=== PATIENT | female | born 1995 | race African-American/Black ===

== ENCOUNTER 2021-06-28 17:52 | Emergency (ER) | payer OTHER, SELFPAY ==
--- NOTE | ~2021-06-28 | XR_ITS ---
XR chest 1V portable DATE: 06/28/2021 21:05 INDICATION: Shortness of breath with exertion, chest congestion TECHNIQUE: Portable upright AP chest on 06/28/2021 at 2100 hours COMPARISON: None FINDINGS: Minimal infiltrate or atelectasis is suggested in the lateral right mid to upper lung. The lungs otherwise appear clear. No pleural effusion or pulmonary vascular congestion or pneumothorax. Normal heart size. No hilar or mediastinal enlargement. Included skeletal structures are unremarkable . IMPRESSION: Subtle minimal infiltrate or atelectasis is suggested in the mid to upper lateral right l [place] field. Focal pneumonia is not excluded. Reviewed, dictated and finalized at location A. POLISHER IMPRESSION: Subtle minimal infiltrate or atelectasis is suggested in the mid to upper lateral right lung field. Focal pneumonia is not excluded.
[2021-06-28 17:58] VITALS: BP 143/73; PULSE 78; TEMP 36.6; O2SAT 100
[2021-06-28 20:00] VITALS: BP 128/85; PULSE 74; RESP 18; O2SAT 100
[2021-06-28 20:03] VITALS: O2SAT 100
--- NOTE | 2021-06-28 20:06 | ECG_ITS ---
Measurements Intervals [place] Rate: 74 P: 1 IN: 146 QRS: 51 QRSD: 84 T: 40 QT: 380 QTc: 422 Interpretive Statements SINUS RHYTHM BASELINE ARTIFACT- I, II, AVR NORMAL ECG Electronically Signed On 06-29-2021 7:33:09 PARTS ADVISOR by Romeo Trammell D.O.
--- NOTE | 2021-06-28 20:12 | ED.GENADULT ---
HPI - General Adult General Chief complaint: Shortness of Breath/Dyspnea Stated complaint: Shortness of Breath Time Seen by Provider: 06/28/21 19:57 History of Present Illness HPI narrative: 26-year-old female presented [facility] for evaluation of 2 weeks of intermittent exertional shortness of breath. Patient did not get a flu vaccine. Patient did get a Covid vaccine. Patient states her last 2 weeks she has had increasing exertional shortness of breath which she notices when she is at work primarily when wearing a facemask. Patient states she does still have some symptoms when she is not wearing her facemask. Patient denies any prior history of PE or DVT. Patient is not on any hormone therapy or control. Review of Systems Review of Systems: CONSTITUTIONAL: Denies fever, chills, or sweats. EYES: Denies visual changes, redness, or discharge. ENT: Denies rhinorrhea, congestion, sore throat, or otalgia. CARDIOVASCULAR: Denies chest pain, palpitations, or edema. RESPIRATORY: Does report exertional shortness of breath GASTROINTESTINAL: Denies abdominal pain, nausea, vomiting, or diarrhea. GENITOURINARY: Denies dysuria or hematuria. SKIN: Denies rash or itching. MUSCULOSKELETAL: Denies back pain, joint pain, or myalgia. NEUROLOGIC: Denies headache, numbness, or weakness. PSYCHIATRIC: Denies anxiety or depression. Exam Narrative: APPEARANCE: Well appearing, no pain in distress, well-nourished. Head normocephalic atraumatic. EYES: PERRLA/EOMI, conjunctivae very clear. NECK: Supple. No adenopathy, no masses. RESPIRATORY: Airway patent, respirations nonlabored. Clear to auscultation bilaterally, no rales, rhonchi, wheezing. CARDIOVASCULAR: Regular rate and rhythm without murmurs rubs or gallops. ABDOMINAL: Soft, nontender, nondistended MUSCULOSKELETAl: Moves all extremities. Strength/ROM intact, No edema, No calf tenderness. NEURO: Alert. Cranial nerves II through XII intact. Good gait. Good coordination SKIN: Warm, dry. Normal Color PSYCHIATRIC: Normal affect/mood Course Course Emergency Course: Patient was updated on the plan to obtain labs and imaging. Patient was treated with antibiotics for the suspected pneumonia. Patient was updated on the plan for treatment. All questions and concerns were addressed. Patient was well-appearing at time of discharge for the emergency room. Vital Signs Vital signs: Vital Signs Temperature 98 F 06/28/21 17:58 Pulse Rate 78 06/28/21 17:58 Blood Pressure 143/73 H 06/28/21 17:58 Pulse Oximetry 100 06/28/21 17:58 Temperature 98 F 06/28/21 17:58 Pulse Rate 81 06/28/21 21:46 Respiratory Rate 18 06/28/21 21:46 Blood Pressure 129/81 06/28/21 21:46 Pulse Oximetry 100 06/28/21 21:46 Medical Decision Making MDM Narrative Medical decision making narrative: Influenza was negative. Covid is pending. D-dimer was not elevated. X-ray did show a suspected right upper lobe pneumonia. Patient was treated with antibiotics in the emergency department. Vital Signs Vital Signs: Vital Signs Temperature 98 F 06/28/21 17:58 Pulse Rate 78 06/28/21 17:58 Blood Pressure 143/73 H 06/28/21 17:58 Pulse Oximetry 100 06/28/21 17:58 Temperature 98 F 06/28/21 17:58 Pulse Rate 81 06/28/21 21:46 Respiratory Rate 18 06/28/21 21:46 Blood Pressure 129/81 06/28/21 21:46 Pulse Oximetry 100 06/28/21 21:46 Lab Data Lab results reviewed: Yes I reviewed the patient's lab results. Result diagrams: 06/28/21 20:23 06/28/21 20:23 Labs: Lab Results 06/28/21 06/28/21 06/28/21 Range/Units 20:23 20:23 20:23 WBC 7.0 (4.5-10.0) K/mm3 RBC 4.29 (4.2-5.4) M/mm3 Hgb 11.8 L (12.0-15.0) g/dL Hct 36.2 L (37.0-47.0) % MCV 84.4 (80-100) fl MCH 27.5 (26-34) pg MCHC 32.6 (32-36) g/dl RDW 12.6 (11.5-14.5) % Plt Count 232 (150-375) k/mm3 MPV 10.2 (7.4-10.4) fl Immature Gran % (Auto)
[2021-06-28 20:31] LABS: Basophils Absolute Auto 0.1 K/mm3 (0.0-0.1); Basophils Percent Auto 0.7 % (0.2-1.2); Eosinophils Absolute Auto 0.1 K/mm3 (0-0.3); Eosinophils Percent Auto 1.1 % (0-4.4); Hematocrit 36.2 % (37.0-47.0); Hemoglobin 11.8 g/dL (12.0-15.0); Immature Granulocyte Absolute 0.02 K/mm3 (0.00-0.031); Immature Granulocyte Percent A 0.3 % (0-0.5); Lymphocytes Absolute Auto 2.42 K/mm3 (0.9-3.2); Lymphocytes Percent Auto 34.7 % (18.3-44.2); Mean Corpuscular HGB Conc 32.6 g/dl (32-36); Mean Corpuscular Hemoglobin 27.5 pg (26-34); Mean Corpuscular Volume 84.4 fl (80-100); Mean Platelet Volume 10.2 fl (7.4-10.4); Monocytes Absolute Auto 0.6 K/mm3 (0.1-0.6); Neutrophils Absolute Auto 3.8 K/mm3 (1.3-6.7); Neutrophils Percent Auto 54.2 % (45.5-73.1); Platelet Count Result 232 k/mm3 (150-375); Red Blood Count 4.29 M/mm3 (4.2-5.4); Red Cell Distribution Width 12.6 % (11.5-14.5)
[2021-06-28 20:43] LABS: D Dimer 0.27 ug/mL (<0.48)
[2021-06-28 20:56] LABS: Alanine Aminotransferase 24 U/L (4-35); Albumin Level 4.6 g/dL (3.5-5.1); Alkaline Phosphatase 50 U/L (38-126); Anion Gap 7 mmol/L (8-16); Aspartate Amino Transferase 32 U/L (14-36); Bilirubin,Total 0.3 mg/dL (0.2-1.3); Blood Urea Nitrogen 17 mg/dL (7-17); Calcium 9.5 mg/dL (8.4-10.2); Carbon Dioxide 27 mmol/L (22-30); Chloride 100 mmol/L (98-107); Estimated CRCL calculation 63 ml/min; Estimated Glomerular Filt Rate > 60; Glucose 101 mg/dL (65-110); Potassium 4.3 mmol/L (3.4-5.0); Sodium 134 mmol/L (137-145)
[2021-06-28] MEDS: AZITHROMYCIN 250 MG TABLET 500 MG PO (21:41)
[2021-06-28 21:46] VITALS: BP 129/81; PULSE 81; RESP 18; O2SAT 100
[2021-06-30 03:58] LABS: SARS-CoV-2 RNA PCR Negative
== END 2021-06-28 21:47 | disposition home or self-care (01) ==
PROVIDERS: Emergency Provider Emergency Medicine
DX: J18.9 Pneumonia, unspecified organism (principal); Z20.822 Contact with and (suspected) exposure to COVID-19
CPT/HCPCS: 36415; 71045; 80053; 85025; 85380; 87804; 93005; 99283; A9270; C9803; U0003; U0005

== ENCOUNTER 2025-01-14 09:56 | Emergency (ER) | payer BC, SELFPAY ==
[2025-01-14] VITALS (13 sets, daily range): BP systolic 105–127; BP diastolic 74–86; PULSE 89–107; RESP 15–23; TEMP 36.6; O2SAT 97–100
--- NOTE | 2025-01-14 10:05 | ED.DIZZY ---
HPI - Dizziness General Chief Complaint: Dizziness Stated Complaint: Dizziness Time Seen by Provider: 01/14/25 09:58 Source: patient Mode of arrival: ambulatory Limitations: no limitations History of Present Illness HPI Narrative: Patient is a 29 y/o female who presents to the ED with c/o dizziness. Patient is currently 34 weeks gestation. She follows with [facility]. Reports over the past 1 hour, she has been feeling dizzy and short of breath. Describes dizziness as feeling lightheaded and as though she is about to pass out. Reports intermittent SOB, worse with exertion. Denies CP, recent cough or cold sx's, fevers, abdominal pain, vaginal bleeding, pain or swelling in her lower extremities. She is feeling baby move. Otherwise denies any problems with her thus far. Related Data Allergies Allergy/AdvReac Type Severity Reaction Status Date / Time amoxicillin Allergy Mild Hives Verified 11/08/22 10:14 Penicillins Allergy Mild Hives Verified 11/08/22 10:14 Review of Systems Review of Systems: All systems reviewed & are unremarkable except as noted in HPI. All systems reviewed & are unremarkable except as noted in HPI and below PMFSH Past Medical History Medical History Suppression of menses Family History Family History Grandparent Diabetes mellitus Social History Social History Smoking status: Never smoker Alcohol intake: former Substance use: former Substance use type: marijuana Living arrangements: with family Occupation/Education: occupation Gender identity (if verbalized by the patient): Female Sexual Orientation (if Verbalized by the Patient): Straight or Heterosexual Exam Narrative: GENERAL: Anxious/tearful appearing, well-nourished, non-toxic, in no acute distress. HEAD: Normocephalic, atraumatic. RESPIRATORY: Airway patent, respirations nonlabored. Clear to auscultation bilaterally, no rales, rhonchi, wheezing. No focal lung sounds. CARDIOVASCULAR: Borderline tachycardic with regular rhythm without murmurs, rubs, or gallops. ABDOMINAL: Uterus gravid, nontender, normoactive BS. MUSCULOSKELETAL: Moves all extremities. No gross deformities. No peripheral edema. No calf tenderness. SKIN: Warm, dry, normal color. NEURO: A&O X3. Speech clear. Cranial nerves II-XII grossly intact. Steady gait. No ataxic movements. PSYCHIATRIC: Tearful. Normal interaction. Course Vital Signs Vital signs: Vital Signs Temperature 97.8 F 01/14/25 10:04 Pulse Rate 96 01/14/25 10:04 Respiratory Rate 16 01/14/25 10:04 Blood Pressure 126/77 01/14/25 10:04 Pulse Oximetry 99 01/14/25 10:04 Temperature 97.8 F 01/14/25 10:04 Pulse Rate 97 01/14/25 11:00 Respiratory Rate 20 01/14/25 11:00 Blood Pressure 127/86 01/14/25 11:00 Pulse Oximetry 100 01/14/25 11:00 MDM - Dizziness MDM Narrative Medical decision making narrative: Patient presented to concern for dizziness/lightheadedness, shortness of breath. Ongoing over the past 1 hour. Currently 34 weeks gestation. Vital signs are stable upon arrival. Patient mildly tachycardic. Blood pressure stable. Oxygen stable on room air. Orthostatic vital signs were evaluated, w/o significant change in heart rate or blood pressure. Patient will be given fluids. EKG with some nonspecific ST changes, no concerning elevation or depression. Basic laboratory studies with mild anemia at 8.9. No recent records to compare to. Patient denies any recent bleeding. Likely related to . No leukocytosis. CMP with evidence of mild dehydration, sodium 132, bicarb slightly low at 20. No anion gap. Kidney function is stable. Stable electrolytes. UA does show 3+ proteinuria, trace leuk esterase, 6-10 WBC, 4+ urine bacteria. Likely contaminated catch, but will cover with antibiotics given status. Blood pressure has been stable here. No other features of preeclampsia. No red flag symptoms. Viral swabs are negative. Troponin undetectable. D-dimer is slightly elevated to 0.91, however PE can be excluded by YEARS Criteria. No evidence of DVT on exam. No persistent tachycardia, no hypoxia. Heart rate has responded to fluids and come down into the 80s consistently. Discussed this with patient. Utilized shared decision-making. She reports she is not concerned for blood clot in her lungs and does not wish to proceed with CTA imaging. She is feeling better after fluids and meclizine. Patient has appointment with OBGYN next . Discussed case with nursing staff at [facility] and advised will contact patient to see if she needs sooner follow-up appointment. OB performed NST in the ED and this was reassuring. No concerning findings. This was reviewed by ARGENIS Saenz on-call, again no concerning findings. Discussed overall reassuring workup with patient. She is feeling better with supportive therapy. Feels comfortable going home at this time. Recommended close follow-up with OBGYN. Given strict return precautions. Advised to stay well hydrated. Will prescribe meclizine for home p.r.n.. Patient in agreement with plan. Discharged in stable condition. Medical Records Attestation: I reviewed the patient's medical records. Lab Data Attestation: I reviewed the patient's lab results. 01/14/25 10:21 01/14/25 10:21 Labs: Lab Results 01/14/25 01/14/25 Range/Units 10:21 10:47 WBC 8.3 (4.5-10.0) K/mm3 RBC 3.34 L (4.2-5.4) M/mm3 Hgb 8.9 L (12.0-15.0) g/dL Hct 28.1 L (37.0-47.0) % MCV 84.1 (80-100) fl MCH 26.6 (26-34) pg MCHC 31.7 L (32-36) g/dl RDW 13.6 (11.5-14.5) % Plt Count 172 (150-375) k/mm3 MPV 10.3 (7.4-10.4) fl Immature Gran % (Auto) 1.3 H (0-0.5) % Neut % (Auto) 75.5 H (45.5-73.1) % Lymph % (Auto) 16.9 L (18.3-44.2) % [place] % (Auto) 5.3 (2.6-8.5) % Eos % (Auto) 0.5 (0-4.4) % Baso % (Auto) 0.5 (0.2-1.2) % Lymph # (Auto) 1.40 (0.9-3.2) K/mm3 [place] # (Auto) 0.4 (0.1-0.6) K/mm3 Eos # (Auto) 0.0 (0-0.3) K/mm3 Baso # (Auto) 0.0 (0.0-0.1) K/mm3 Abs Immat Gran (auto) 0.11 H (0.00-0.031) K/mm3 Absolute Neuts (auto) 6.2 (1.3-6.7) K/mm3 Absolute Nucleated RBC 0.000 (0.0-0.012) K/mm3 Nucleated RBC % 0.0 (0.0-0.2) % PT 13.5 (11.1-14.7) Seconds INR 1.0 APTT 24.9 (22.3-36.8) Seconds D-Dimer 0.91 H (<0.48) ug/mL Sodium 132 L (137-145) mmol/L Potassium 3.9 (3.4-5.0) mmol/L Chloride 106 (98-107) mmol/L Carbon Dioxide 20 L (22-30) mmol/L Anion Gap 6 (4-12) mmol/L BUN 9 D (7-17) mg/dL Creatinine 0.96 (0.7-1.0) mg/dL Estim Creat Clear Calc Not Reportable Estimated GFR > 60 (59 - ) Glucose 155 H (65-110) mg/dL Calcium 8.7 (8.4-10.2) mg/dL Magnesium 1.7 (1.6-2.3) mg/dL Total Bilirubin 0.4 (0.2-1.3) mg/dL AST 39 H (14-36) U/L ALT 29 (6-35) U/L Alkaline Phosphatase 108 (38-126) U/L Troponin I < 0.012 (0.000-0.034) ng/mL Total Protein 6.3 (6.3-8.2) g/dL Albumin 3.2 L (3.5-5.1) g/dL Urine Color Dark yellow (Yellow) Urine Appearance Cloudy H (Clear) Urine pH 6.5 (5.0-9.0) Ur Specific [place] 1.030 (1.001-1.035) Urine Protein 3+ H (Negative) mg/dL Urine Glucose (UA) Negative (Negative) mg/dL Urine Ketones 1+ H (Negative) mg/dL Ur Blood (Man) Negative (Negative) Urine Nitrate Negative (Negative) Urine Bilirubin 1+ H (Negative) Urine Urobilinogen 1.0 (<2.0) mg/dL Add Ur Microanalysis Reviewed Leukocyte Esterase Rfl Trace H (Negative) AISHA/UL Urine RBC 0-2 (0-2) /hpf Urine WBC 6-10 H (0-3) /hpf Ur Squamous Epith Cells Many H (Few) /hpf Urine Bacteria 4+ H /hpf Urine Casts >20 Hyaline Casts 3-4 H (None) /lpf Urine Mucus Present /lpf Influenza A (RT-PCR) Negative (Negative) Influenza B (RT-PCR) Negative (Negative) RSV (RT-PCR) Negative (Negative) SARS-CoV-2 RNA (RT-PCR) Negative (Negative) ECG Data EKG #1: Attestation: I personally reviewed and interpreted this ECG as follows: ECG completion date: 01/14/25 ECG completion time: 10:11 EKG Interpretation: normal rate (96), sinus rhythm and non-specific ST changes Discharge Plan Discharge Clinical Impression: Lightheadedness, 34 weeks gestation of , Asymptomatic bacteriuria during in third trimester Proteinuria Qualifiers: Proteinuria type: unspecified Qualified Code(s): R80.9 - Proteinuria, unspecified Patient Disposition: Home Condition: Stable Instructions: Antibiotic Form, Lightheadedness (ED), Dizziness (ED), at 35 to 38 Weeks (ED) Additional Instructions: Stay well hydrated at home. You may utilize meclizine as needed for further dizziness. Your urine showed signs of possible infection. Take antibiotics as prescribed. Follow-up closely with your OBGYN for further evaluation. They were made aware of your ED visit. They may want to see you sooner than your appointment next . Return to an ED if you experience worsening or severe symptoms, passing out, significant difficulty breathing, severe chest pain, unable to keep down food or drink, severe abdominal pain, vaginal bleeding, pain or swelling in your legs, or any other symptoms of concern. Patient Language: [place] Prescriptions: New nitrofurantoin monohyd/m-cryst 100 mg capsule 100 mg PO Q12H 5 Days Qty: 10 0RF Rx Instructions: must administer with a meal/food meclizine 25 mg tablet 25 mg PO TID PRN (Reason: dizziness) Qty: 15 0RF Follow-up/Referrals: PHYSICIAN,SURFACE LAY OUT TECHNICIAN [Primary Care Provider] - Time of Disposition: 12:21
--- NOTE | 2025-01-14 10:07 | ECG_ITS ---
Test Date: 2025-01-14 10:11:07 Measurements Intervals [place] Rate: 96 P: 62 WY: 138 QRS: 43 QRSD: 75 T: 25 QT: 329 QTc: 417 Interpretive Statements SINUS RHYTHM WITHIN NORMAL LIMITS HIS No previous ECG available for comparison Electronically Signed On 01-14-2025 10:20:06 CDT by Rene Lema M.D.
--- OUTSIDE RECORDS SUMMARY | 2025-01-14 10:07 | XMS_ITS | Data Portability ---
Author Organization [facility] Address [address] [place] [address] Assessment No assessment recorded. Plan of Treatment Reminders Order Date Submit Date Provider Last Modified By Organization Details Last Modified Time Details Appointments None recorded. Lab bacterial vaginosis + vaginitis panel, vaginal 2015 016 MELISSA [facility], [address], [address], [place], [address], 6 06:05:25 HSV (1+2) DNA, qual, PCR, unspecifie d specimen 2015 016 [facility], [address], [address], [place], [address], 6 06:05:26 test, urine 2015 016 [email or web address] In-Office Order, Internal Use Only DO Not Attach Compendium DO Not Attach Compendium, Do Not Delete/merge, [id number] 6 10:41:56 urinalysis , dipstick 2015 016 [email or web address] In-Office Order, Internal Use Only DO Not Attach Compendium DO Not Attach Compendium, Do Not Delete/merge, [id number] 6 10:41:56 bacterial vaginosis + vaginitis panel, vaginal 2014 015 MELISSA [facility], [address], [address], [place], [address], 5 14:23:45 HSV (1+2) DNA, qual, PCR, unspecifie d specimen 2014 015 [facility], [address], [address], [place], [address], 5 14:23:45 test, urine 2014 015 [email or web address] In-Office Order, Internal Use Only DO Not Attach Compendium DO Not Attach Compendium, Do Not Delete/merge, [id number] 5 13:01:20 Referral None recorded. Procedures None recorded. Surgeries None recorded. Imaging None recorded. Medication Orders Tubersol 5 tub. unit/0.1 mL intraderma l injection solution 2023 024 [facility] #[id number], [address] [place], [place], [id number], 4 19:07:43 Sprintec (28) 0.25 mg-0.035 mg tablet 2015 016 [facility] #[id number], [address], [place], [id number], 6 18:03:37 Terazol 3 0.8 % vaginal cream 2015 016 [facility] #[id number], [address] [place], [place], [id number], 6 18:03:37 Diflucan 150 mg tablet 2014 015 [place] [address] [facility] #[id number], [address] [place], [place], [id number], 5 17:28:43 Sprintec (28) 0.25 mg-0.035 mg tablet 2014 015 [place] [address] [facility] #[id number], [address], [place], [id number], 17:28:43 Patient TargetsNo targets recorded. Patient Instructions Encounter Date Encounter Id Patient Instructions Last Modified By Organization Details Last Modified Time 02/10/2015 [id number] visual acuity* [email or web address] Not availab le 02/10/2015 13:03:08 02/16/2015 [id number] learning about control: combination pills Not available 02/16/2015 17:28:43 12/24/2015 [id number] learning about control: combination pills [email or web address] Not available 12/25/2015 09:27:57 Reason for Referral None Reported. Results Created Date Observation Date Name Description Value Unit Range Abnormal Flag Note LastModifiedBy Organization Detail LastModifiedTime 12/24/19 16 12/24/2015 urina lysis , dipst ick Leukocytes Negati ve Not Available In-Office Order Internal Use Only DO Not Attach Compendium DO Not Attach Compendium, Do Not Delete/merge, [id number] 12/24/2015 17:08:37 12/24/1912/24/2015 urina lysis , dipst ick Nitrite negati ve Not Available In-Office Order Internal Use Only DO Not Attach Compendium DO Not Attach Compendium, Do Not Delete/merge, 12/24/2015 17:08:37 12/24/19 16 12/24/2015 urina lysis , dipst ick Urobilinogen .2 Not Available In-Of fice Order Internal Use Only DO Not Attach Compendium DO Not Attach Compendium, Do Not Delete/merge, 12/24/2015 17:08:37 12/24/19 16 12/24/2015 urina lysis , dipst ick Protein Negati ve Not Available In-Office Order Internal Use Only DO Not Attach Compendium DO Not Attach Compendium, Do Not Delete/merge, 12/24/2015 17:08:37 12/24/19 16 12/24/2015 urina lysis , dipst ick pH 6.5 Not Available In-Office Order Internal Use Only DO Not Attach Compendium DO Not Attach Compendium, Do Not Delete/merge, [facility] 12/24/2015 17:08:37 12/24/19 16 12/24/2015 urina lysis , dipst ick Blood Hemoly zed: Trace Not Available In-Office Order Internal Use Only DO Not Attach Compendium DO Not Attach Compendium, Do Not Delete/merge, [facility] 12/24/2015 17:08:37 12/24/19 16 12/24/2015 urina lysis , dipst ick Specific [place] 1.025 Not Available In-Off ice Order Internal Use Only DO Not Attach Compendium DO Not Attach Compendium, Do Not Delete/merge, [facility] 12/24/2015 17:08:37 12/24/19 16 12/24/2015 urina lysis , dipst ick Ketone Negati ve Not Available In-Office Order Internal Use Only DO Not Attach Compendium DO Not Attach Compendium, Do Not Delete/merge, [facility] 12/24/2015 17:08:37 12/24/19 16 12/24/2015 urina lysis , dipst ick Bilirubin Negati ve Not Available In-Office Order Internal Use Only DO Not Attach Compendium DO Not Attach Compendium, Do Not Delete/merge, [facility] 12/24/2015 17:08:37 12/24/19 16 12/24/2015 urina lysis , dipst ick Glucose Negati ve Not Available In-Office Order Internal Use Only DO Not Attach Compendium DO Not Attach Compendium, Do Not Delete/merge, [facility] 12/24/2015 17:08:37 12/24/19 16 12/24/2015 urina lysis , dipst ick Appearance Clear Not Available In-Offi ce Order Internal Use Only DO Not Attach Compendium DO Not Attach Compendium, Do Not Delete/merge, [facility] 12/24/2015 17:08:37 12/24/19 16 12/24/2015 urina lysis , dipst ick Color Yellow Not Available In-Office Order Internal Use Only DO Not Attach Compendium DO Not Attach Compendium, Do Not Delete/merge, [facility] 12/24/2015 17:08:37 12/24/19 16 12/24/2015 pregn brenton test, urine HCG negati ve Not Available In-Office Order Internal Use Only DO Not Attach Compendium DO Not Attach Compendium, Do Not Delete/merge, [id number] 12/24/2015 17:08:37 02/17/20 15 02/16/2015 pregn brenton test, urine HCG negati ve Not Available In-Office Order Internal Use Only DO Not Attach Compendium DO Not Attach Compendium, Do Not Delete/merge, [id number] 02/16/2015 17:28:22 02/11/20 15 02/10/2015 visua l acuit y* R Eye Uncorrected 20/ Not Available In-O ffice Order Internal Use Only DO Not Attach Compendium DO Not Attach Compendium, Do Not Delete/merge, [id number] 02/10/2015 11:31:46 02/11/20 15 02/10/2015 visua l acuit y* L Eye Uncorrected 20/30 Not Available In-O ffice Order Internal Use Only DO Not Attach Compendium DO Not Attach Compendium, Do Not Delete/merge, [id number] 02/10/2015 11:31:46 02/18/20 15 02/21/2015 bacte rial vagin osis + vagin itis panel , vagin al chlamydia trachomatis, KIANA NEGATI VE negati ve Not Available [facility] ([facility]) [address] [place], [address], 02/23/2015 14:23:45 02/18/20 15 02/21/2015 bacte rial vagin osis + vagin itis panel , vagin al neisseria gonorrhoeae, KIANA NEGATI VE negati ve Not Available [facility] ([facility]) [address] [place], [address], 02/23/2015 14:23:45 02/18/20 15 02/23/2015 bacte rial vagin osis + vagin itis panel , vagin al atopobium vaginae LOW - 0 score Not Available [facility] ([facility]) [address] [place], [address], 02/23/2015 14:23:45 02/18/20 15 02/23/2015 bacte rial vagin osis + vagin itis panel , vagin al bvab 2 LOW - 0 score Not Available [facility] ([facility]) [address] [place], [address], 02/23/2015 14:23:45 02/18/20 15 02/23/2015 bacte rial vagin osis + vagin itis panel , vagin al megasphaera 1 LOW - 0 score CALCU LATE TOTAL SCORE BY MICHELLE Rojas THE 3 INDIV IDUAL BACTE RIAL VAGIN OSIS (BV) MARKE R SCORE S TOGET HER. TOTAL SCORE IS INTER PRETE D FOLLO WS: TOTAL SCORE 0-1: INDIC ATES THE ABSEN CE OF BV. TOTAL SCORE 2: INDET ERMIN ATE FOR BV. ADDIT IONAL CLINI MADELIN DATA SHOUL D BE EVALU ATED TO ESTAB PURVI A DIAGN OSIS. TOTAL SCORE 3-6: INDIC ATES THE PRESE NCE OF BV. THIS TEST WAS DEVEL OPED AND ITS PERFO RMANC E LEWIS CTERI STICS DETER MINED BY [employer] [facility]. IT HAS NOT BEEN CLEAR ED OR APPRO NITO BY THE FOOD AND DRUG ADMIN ISTRA TION. THE FDA HAS DETER MINED THAT SUCH CLEAR ANCE OR APPRO SASHA IS NOT NECES DAVID. Not Available [facility] ([facility]) [address] [facility], [place], [address], 02/23/2015 14:23:45 02/18/20 15 02/23/2015 bacte rial vagin osis + vagin itis panel , vagin al daphney albicans, KIANA POSITI VE negati ve abnormal Not Available [facility] ([facility]) [address] [place], [address], 02/23/2015 14:23:45 02/18/20 15 02/23/2015 bacte rial vagin osis + vagin itis panel , vagin al daphney glabrata, KIANA NEGATI VE negati ve THIS TEST WAS DEVEL OPED AND ITS PERFO RMANC E LEWIS CTERI STICS DETER MINED BY [employer] [facility]. IT HAS NOT BEEN CLEAR ED OR APPRO NITO BY THE FOOD AND DRUG ADMIN ISTRA TION. THE FDA HAS DETER MINED THAT SUCH CLEAR ANCE OR APPRO SASHA IS NOT NECES DAVID. Not Available [facility] ([facility]) [address] [place], [address], 02/23/2015 14:23:45 02/18/20 15 02/23/2015 bacte rial vagin osis + vagin itis panel , vagin al trich vag by KIANA NEGATI VE negati ve Not Available [facility] ([facility]) [address] [place], [address], 02/23/2015 14:23:45 02/18/20 15 02/19/2015 HSV (1+2) DNA, qual, PCR, unspe cifie d speci men hsv 1 KIANA NEGATI VE negati ve Not Available [facility] ([facility]) [address] [place], [address], 02/23/2015 14:23:45 02/18/20 15 02/19/2015 HSV (1+2) DNA, qual, PCR, unspe cifie d speci men hsv 2 KIANA NEGATI VE negati ve Not Available [facility] ([facility]) [address] [place], [address], 02/23/2015 14:23:45 12/25/19 16 12/27/2015 bacte rial vagin osis + vagin itis panel , vagin al chlamydia trachomatis, KIANA NEGATI VE negati ve Not Available [facility] ([facility]) [address] [place], [address], 12/30/2015 06:05:25 12/25/19 16 12/27/2015 bacte rial vagin osis + vagin itis panel , vagin al neisseria gonorrhoeae, KIANA NEGATI VE negati ve Not Available [facility] ([facility]) [address] [place], [address], 12/30/2015 06:05:25 12/25/19 16 12/28/2015 bacte rial vagin osis + vagin itis panel , vagin al daphney albicans, KIANA NEGATI VE negati ve Not Available [facility] ([facility]) [address] [place], [address], 12/30/2015 06:05:25 12/25/19 16 12/28/2015 bacte rial vagin osis + vagin itis panel , vagin al daphney glabrata, KIANA NEGATI VE negati ve THIS TEST WAS DEVEL OPED AND ITS PERFO RMANC E LEWIS CTERI STICS DETER MINED BY [facility]. IT HAS NOT BEEN CLEAR ED OR APPRO NITO BY THE FOOD AND DRUG ADMIN ISTRA TION. THE FDA HAS DETER MINED THAT SUCH CLEAR ANCE OR APPRO SASHA IS NOT NECES DAVID. Not Available [facility] ([facility]) [address] [place], [address], 12/30/2015 06:05:25 12/25/19 16 12/28/2015 bacte rial vagin osis + vagin itis panel , vagin al trich vag by KIANA NEGATI VE negati ve Not Available [facility] ([facility]) [address] [place], [address], 12/30/2015 06:05:25 12/25/19 16 12/30/2015 bacte rial vagin osis + vagin itis panel , vagin al atopobium vaginae HIGH - 2 score abnormal Not Available [facility] ([facility]) [address] [place], [address], 12/30/2015 06:05:25 12/25/19 16 12/30/2015 bacte rial vagin osis + vagin itis panel , vagin al bvab 2 HIGH - 2 score abnormal Not Available [facility] ([facility]) [address] [place], [address], 12/30/2015 06:05:25 12/25/19 16 12/30/2015 bacte rial vagin osis + vagin itis panel , vagin al megasphaera 1 HIGH - 2 score abnormal CALCU LATE TOTAL SCORE BY MICHELLE Rojas THE 3 INDIV IDUAL BACTE RIAL VAGIN OSIS (BV) MARKE R SCORE S TOGET HER. TOTAL SCORE IS INTER PRETE D FOLLO WS: TOTAL SCORE 0-1: INDIC ATES THE ABSEN CE OF BV. TOTAL SCORE 2: INDET ERMIN ATE FOR BV. ADDIT IONAL CLINI MADELIN DATA SHOUL D BE EVALU ATED TO ESTAB PURVI A DIAGN OSIS. TOTAL SCORE 3-6: INDIC ATES THE PRESE NCE OF BV. THIS TEST WAS DEVEL OPED AND ITS PERFO RMANC E LEWIS CTERI STICS DETER MINED BY [facility]. IT HAS NOT BEEN CLEAR ED OR APPRO NITO BY THE FOOD AND DRUG ADMIN ISTRA TION. THE FDA HAS DETER MINED THAT SUCH CLEAR ANCE OR APPRO SASHA IS NOT NECES DAVID. Not Available [facility] ([facility]) [address] [place], [address], 12/30/2015 06:05:25 12/25/19 16 12/28/2015 HSV (1+2) DNA, qual, PCR, unspe cifie d speci men hsv 1 KIANA NEGATI VE negati ve Not Available [facility] ([facility]) [address] [place], [address], 12/30/2015 06:05:26 12/25/19 16 12/28/2015 HSV (1+2) DNA, qual, PCR, unspe cifie d speci men hsv 2 KIANA NEGATI VE negati ve Not Available [facility] ([facility]) [address] [place], [address], 12/30/2015 06:05:26 Result Notes None recorded. Problems Name Problem SNOMED Code Status Onset Date Resolution Date Notes Provider Name and Address Organization Details Recorded Time Vaginitis 27653145 Active Marcial mi, [place] - [facility] 6 18:03:28 Acute vulvovaginitis 36708971 Active Marcial Jaquez null, [place] - [facility] 6 18:03:28 Bacterial vaginosis 737594526 Active Phil Guajardo RN null, [facility] 6 09:47:13 Problem Notes None recorded. Medical Equipment None Reported. Allergies Allergen ID Allergen Name Allergen Category Reaction Reaction Severity Criticality Documentation Date Start Date Code Code System Note Provider Name and Address Organization Details Recorded Time 06884 amoxicill in medicatio n rash moderate Not available 02/10/2015 723 RxNorm Shaun Dickson null, [facility] 5 09:43:36 Medications Name Sig Start Date Stop Date Status Note LastModified by Organization Details LastModified Time mononessa 0.25-35 mg-mcg tabs active Not Available Not Available Not Available fluconazole 150 mg tabs active Not Available Not Available Not Available fluconazole 150 mg tablet Take 1 tablet every day by oral route as directed for 1 day. active Not Available Not Available No t Available Tubersol 5 tub. unit/0.1 mL intradermal injection solution Administe r .1ml interderm ally 2023 active Not Available Not Available Not Avai lable terconazole 0.8 % vaginal cream Insert 1 applicato rful every day by vaginal route at bedtime for 3 days. active Not Available Not Available No t Available metronidazo le 500 mg tablet Take 1 tablet twice a day by oral route for 5 days. active Not Available Not Available No t Available ibuprofen 600 mg tablet TAKE 1 TABLET BY MOUTH EVERY 6 HOURS NEEDED 08/15 completed Not Available Not Available Not Available Estarylla 0.25 mg-0.035 mg tablet TAKE 1 TABLET BY MOUTH EVERY DAY active Not Available Not Available No t Available Vitals Date Recorded Body height Body mass index (BMI) Body weight Heart rate Oxygen saturation Oxygen saturation in Arterial blood by Pulse oximetry Systolic And Diastolic Provider Name and Address Organization Details Last Updated DateTime 4 167.64 cm 25.7 kg/m2 89301.1 9 g 80 /min 98 % 98 % 112/78 mm[Hg] Grazyna Balbuena MA [facility] 4 11:13:47 Date Recorded Body height Body weight Body mass index (BMI) Systolic And Diastolic Provider Name and Address Organization Details Last Updated DateTime 12/24/2015 167.64 cm 31938.931 8 g 22.6 kg/m2 112/66 mm[Hg] Lorraine Chavarria MA [facility] 12/24/2015 17:11:29 Date Recorded Body weight Body mass index (BMI) Body height Body temperature Systolic And Diastolic Provider Name and Address Organization Details Last Updated DateTime 02/10/2015 97256.74 5296 g 20.2 kg/m2 167.64 cm 98.1 [degF] 120/68 mm[Hg] Shaun Dickson [facility] 11:31:46 Date Recorded Body height Body mass index (BMI) Body weight Systolic And Diastolic Provider Name and Address Organization Details Last Updated DateTime 02/16/2015 167.64 cm 19.9 kg/m2 23880.861 51 g 106/72 mm[Hg] Lorraine Chavarria MA [facility] 02/16/2015 16:37:22 Social History Question Answer Notes LastModified by Organizat ion Details LastModified Time Tobacco Smoking Status [facility]/10[facility]2015 11:31:45 Do You Have An Advance Directive? No Information not available 02/16/2015 Animal Exposure? Yes Informat ion not available 02/10/2015 Do You Wear A Helmet When Biking? No Information not available 02/10/2015 Are You Blind Or Do You Have Difficulty Seeing? No Information not available 08/15/2023 Is Blood Transfusion Acceptable In An Emergency? Yes Information not available 02/16/2015 What Is Your Level Of Caffeine Consumption? Moderate Information not available 02/10/2015 How Much Tobacco Do You Chew? None Information not available 02/10/2015 Are You Deaf Or Do You Have Serious Difficulty Hearing? No Information not available 08/15/2023 What Type Of Diet Are You Following? REGULAR Information not available 02/10/2015 Education 12 Information no t available 02/16/2015 What Is The Highest Grade Or Level Of School You Have Completed Or The Highest Degree You Have Received? [id number] Information not available 08/15/2023 Have There Been Any Changes To Your Family Or Social Situation? No Information no t available 02/10/2015 Are There Any Guns Present In Your Home? No Information not available 02/10/2015 What Is Your Home Situation? Mother Information not available 02/10/2015 Live Alone Or With Others? With Others Information not available 02/16/2015 Parent Involvement? Both Parents Involved Information not available 02/10/2015 Mosquito Repellent Used Routinely No Information not available 02/10/2015 What Was The Date Of Your Most Recent Tobacco Screening? 08/15/2023 Information not available 08/15/2023 How Many Children Do You Have? 0 Information not available 02/16/2015 What Is Your Parents' Marital Status? Unmarried Information not available 02/10/2015 Performs Monthly Self-breast Exam? No Information no t available 02/16/2015 Pool Exposure No Information not available 02/10/2015 Do You Use Protection During Sex? Always Information not available 02/16/2015 What Is Your Relationship Status? Single Information not available 02/16/2015 Do You Use Your Seat Belt Or Car Seat Routinely? Yes Information not available 02/10/2015 Seat Belts Used Routinely Yes Information not available 02/16/2015 Are You Sexually Active? Yes Information not available 02/16/2015 Do You Have Any Siblings? 1 Information not available 02/10/2015 Do You Have Smoke And Carbon Monoxide Detectors In Your Home? Yes Information not available 02/10/2015 Are You Passively Exposed To Smoke? No Information no t available 02/10/2015 How Much Tobacco Do You Smoke? No Information not available 02/10/2015 What Types Of Sporting Activities Do You Participate In? Track, Volleyball, Basketball Information not available 02/10/2015 General Stress Level Low Information not available 02/16/2015 Do You Use Sunscreen Routinely? No Information not available 02/10/2015 Year In School College Informatio n not available 02/10/2015 Sex: Female Functional Status Question Answer Note LastModified by Organizat ion Details LastModified Time What is your level of alcohol consumption? None Information not available 02/10/2015 Are you currently employed? Yes Information not available 08/15/2023 Are you able to care for yourself? 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 Occasional Information not available 02/10/2015 Mental Status Question Answer Note LastModified by Organization D etails LastModified Time Do you feel stressed (tense, restless, nervous, or anxious, or unable to sleep at night)? [id number] Information not available 08/15/2023 Are you or have you been involved with bullying? No Information not available 02/10/2015 Family History Relationship Description Onset Age of this Age Resolved Age Notes LastModified by Organization Details LastModified Time Maternal Grandmother Diabetes mellitus [email or web address] Not available 2015 22:56:50 Maternal Aunt Diabetes mellitus [email or web address] Not available 2015 22:56:50 Medical History Condition Response Heart Problems N Other N High Blood Pressure N Breast Cancer N Kidney or Bladder Problems N Thyroid Problems N Blood Clots N Depression N Lung Disease N GI Problems N Acne N Breast Problem N Eating Disorder N Anemia N Anesthesia Complications N Headaches/Migraines N Anxiety Disorder N Diabetes N Ovarian Cancer N Muscle, Joint, or Bone Problems N Blood Transfusions N Arthritis N Seizures/Epilepsy N Polyps N Infertility N Acid Reflux (GERD) N Cancer N Stroke N Abuse/Domestic Violence N Asthma N Endometriosis N High Cholesterol N Hepatitis N Liver Disease N Heart Disease N Fibromyalgia N Pre-Eclampsia N Hypertension N Osteoporosis N Kidney Disease N Gynecological History Statement/Question Response Flow Light Date of LMP 08/05/2023 STIs/STDs N Duration of Flow (days) 5 Age at Menarche 13 Current Control Method BCPs Frequency of Cycle (Q days) 30 Sexually Active? Y Menses Monthly Y Sexual Problems? N LMP Definite Desired Control Method BCPs Obstetrics History GPAL:G 0 P 0 0 0 0 Type Value Multiple Births 0 Full Term 0 Induced 0 Spontaneous 0 Premature 0 Living 0 Ectopics 0 Total 0 Immunizations Vaccine Type Date Status Note Provider Nam e and Address Organization Details Recorded Time DTP 7 completed Glenis Marie, [place], [place] [facility] 01/09/2024 10:08:15 DTP 8 completed Glenis Marie, [place] [facility] 01/09/2024 10:08:23 DTP 8 completed Glenis Marie, [place] [facility] 01/09/2024 10:08:34 DTP 9 completed Glenis Marie, [place] [facility] 01/09/2024 10:08:44 DTP 2 completed Glenis Marie, [place] [facility] 01/09/2024 10:08:54 DTP 9 completed Glenis Marie, [place] [facility] 01/09/2024 10:09:01 DTP 4 completed Glenis Marie[place] [facility] 01/09/2024 10:09:10 Hib, unspecified formulation 7 completed Glenis Marie[place] [facility] 01/09/2024 10:09:38 Hib, unspecified formulation 8 completed Glenis [place] [facility] 01/09/2024 10:09:47 Hib, unspecified formulation 8 completed Glenis Marie, [place] [facility] 01/09/2024 10:09:56 Hib, unspecified formulation 9 completed Glenis Marie[place] [facility] 01/09/2024 10:10:04 HPV, unspecified formulation 9 completed Glenis [place] [facility] 01/09/2024 10:11:05 HPV, unspecified formulation 9 completed Glenis [place] [facility] 01/09/2024 10:11:17 HPV, unspecified formulation 0 completed Glenis [place] [facility] 01/09/2024 10:11:27 influenza, unspecified formulation 8 completed Glenis [place] [facility] 01/09/2024 10:11:51 influenza, unspecified formulation 9 completed Glenis Marie[place] [facility] 01/09/2024 10:12:08 influenza, unspecified formulation 3 completed Glenis Marie[place] [facility] 01/09/2024 10:12:16 influenza, unspecified formulation 4 completed Glenis [place] [facility] 01/09/2024 10:12:25 MMR 8 completed Glenis [place] [facility] 01/09/2024 10:12:49 MMR 9 completed Glenis [place] [facility] 01/09/2024 10:12:57 MMR 2 completed [place]is [place] [facility] 01/09/2024 10:13:04 MMR 4 completed Glenis [place] [facility] 01/09/2024 10:13:12 MMR 4 completed [place]is [place] [facility] 01/09/2024 10:13:19 meningococcal ACWY, unspecified formulation 9 completed [place]is [place] [facility] 01/09/2024 10:13:41 meningococcal ACWY, unspecified formulation 4 completed [place]is [place] [facility] 01/09/2024 10:13:49 polio, unspecified formulation 7 completed Glenis [place] [facility] 01/09/2024 10:14:06 polio, unspecified formulation 8 completed Glenis [place] [facility] 01/09/2024 10:14:14 polio, unspecified formulation 9 completed Glenis [place] [facility] 01/09/2024 10:14:45 polio, unspecified formulation 2 completed Glenis [place] [facility] 01/09/2024 10:15:02 varicella 4 completed [place]is [place] [facility] 01/09/2024 10:16:59 varicella 4 completed [place] [facility] 01/09/2024 10:17:06 SARS-COV-2 (COVID-19) vaccine, UNSPECIFIED 1 completed [place]is [place] [facility] 01/09/2024 10:17:26 SARS-COV-2 (COVID-19) vaccine, UNSPECIFIED 1 completed [place]is [place] [facility] 01/09/2024 10:17:35 Hep A, pediatric, unspecified formulation 9 completed [place]is [place] [facility] 01/09/2024 10:18:18 Hep A, pediatric, unspecified formulation 0 completed Glenis Marie, [place], [place] [facility] 01/09/2024 10:18:24 Hep A, pediatric, unspecified formulation 3 completed [place]is [place], [place] [facility] 01/09/2024 10:18:31 Hep A, pediatric, unspecified formulation 4 completed [place]is [place], [place] [facility] 01/09/2024 10:18:38 Hep B, unspecified formulation 7 completed Glenis Marie, [place] [facility] 01/09/2024 10:18:55 Hep B, unspecified formulation 7 completed Glenis [place], [place] [facility] 01/09/2024 10:19:02 Hep B, unspecified formulation 8 completed Glenis [place], [place] [facility] 01/09/2024 10:19:10 Hep B, unspecified formulation 3 completed Glenisелена MarieLORRAINE [place] [facility] 01/09/2024 10:19:17 Hep B, unspecified formulation 4 completed Glenis [place] [facility] 01/09/2024 10:19:24 Tdap 4 completed Miesha Mahan MD Attn: Accounting,[address] [facility], [place], [address], [place] [facility] 08/15/2023 18:54:13 Past Encounters Encounter ID Performer Location Encounter Start Date Encounter Closed Date Diagnosis/Indication Diagnosis SNOMED-CT Code Diagnosis ICD10 Code Diagnosis Note [id number] MD Gwendolyn Velázquez (Peds) [address] [place] [address] [id number] 02/10/2015 11:00:29 02/10/2015 14:17:43 Well child [id number] [facility] [address] [place] [address] [id number] 02/16/2015 15:58:54 02/17/2015 12:51:47 Gynecologic examination [id number] Uses oral contraception [id number] Vaginitis [id number] MD [facility] [address] [place] [address] [id number] 12/24/2015 16:01:43 12/31/2015 15:29:52 Vaginitis 36045314 N76.0 1-2 months of recurrent vaginal discharge for which she sought consult, prescribed diflucan 1 dose x 2 different episodes which gave temporary relief x 1 week. no bloody discharge. Acute vulvovaginitis 902 85810 N76.0 Uses oral contraception 9686862 Z30.41 [id number] MD [facility] [address] [place] [address] [id number] 08/15/2023 11:00:30 08/17/2023 16:21:48 Tuberculosis screening 910937628 Z11.1 Adult heal th examination 593506704 Z00.00 Normal. See above physical ex. Health Concerns Section Related Observation LastModified by Organization Detai ls LastModified Time None Recorded Concern Status LastModified by Organization Details LastModified Time None Recorded Advance Directives Directive N: Payers Insurance Date Sequence Insurance Name Policy Number Policy Cabrera Covered Member ID Cabrera Member ID Guarantor Name 08/16/2023 1 [facility] (MEDICAID HMO) Chiquita Rell [id number] Chiquita Rell 01/08/2024 1 [facility] (MEDICAID REPLACEMENT - HMO) Chiquita Rell [id number] Chiquita Rell Notes Date Note Type Note Provider Name and Address Organization Details Recorded Time 02/10/2015 text/html 19 yo wcc/immune update. Leaving for college, plans participate in track Cynthia Sanchez MD Attn: Accounting,[address] [facility], [place], [address], [facility] 02/10/2015 13:03:22 12/24/2015 text/html vaginal discharg e x 1-2 months for which patient took 1 dose of pill From this MD- gave temporary relief. 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 allergic to amoxicillin, social smoker. No chest pain, no shortness of breath, no fever, regular appetite, and bowel habit. ROS as noted in HPI. Miesha Mahan MD Attn: Accounting[address] [facility], [place], [address], [facility] 08/15/2023 18:57:16 OBGyn Episode No OBEpisode recorded.
--- OUTSIDE RECORDS SUMMARY | 2025-01-14 10:07 | XMS_ITS | Referral Summary ---
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 Iron deficiency anemia due to chronic blood loss 12/01/2020 Social History Tobacco Use Types Packs/Day Years Used Date Smoking Tobacco: Never Smokeless Tobacco: Never Personal Safety Answer Date Recorded Getting School Help Needed Not on file 08/26 Comments Unknown Sex and Gender Information Value Date Recorded Sex Assigned at Not on file Legal Sex Female 11:01 PM [employer] Gender Identity Not on file Sexual Orientation Not on file Last Filed Vital Signs Vital Sign Reading Time Taken Comments Blood Pressure 114/80 12/01/2020 10:25 AM CDT Pulse 72 12/01/2020 10:25 AM CDT Temperature 36.4 C (97.5 F) 12/01/2020 10:25 AM CDT Respiratory Rate 16 12/01/2020 10:25 AM CDT Oxygen Saturation 98% 11/24/2020 9:57 AM CDT Inhaled Oxygen Concentration - - Weight 70.8 kg (156 lb) 12/01/2020 10:25 AM CDT Height 167.6 cm (5' 6) 12/01/2020 10:25 AM CDT Body Mass Index 25.18 12/01/2020 10:25 AM CDT Plan of Treatment Not on file Insurance [employer] SIG [id number] [place] [address] [address] [place] [address] Care Teams Clinical Psychiatrist Relationship Specialty Start Date End Date Adalberto Land DO PCP - General Family Medicine 09/29/20
--- OUTSIDE RECORDS SUMMARY | 2025-01-14 10:07 | XMS_ITS | Data Portability ---
Author Organization [employer] , [facility]Alexandre Address [address] [place] [address] Assessment No assessment recorded. Plan of Treatment Reminders Order Date Submit Date Provider Last Modified By Organization Details Last Modified Time Details Appointments OB RETURN EST 2024 09:00A M Mare mendoza CNM Not available Not available Not available Lab CBC w/ auto diff 2024 025 [employer], [address] [place] [address], [id number], 12/25/2024 10:48:50 obstetric screen, serum or blood 2024 025 MCLEAN [employer] [facility], [address] [place] [address], [address], 12/25/2024 11:55:50 glucose tolerance test, post-50G, 1-hour 2024 025 [employer], [address] [place] [address], [id number], 11/30/2024 12:00:54 Referral None recorded. Procedures None recorded. Surgeries None recorded. Imaging US, obstetric , 2nd or 3rd trimester 2024 025 MELISSA Not available 10/12/2024 04:59:53 US, obstetric , transabdo jeff + transvagi nal 2024 025 [email or web address] Not available 10/17/2024 11:24:58 Medication Orders None recorded. Patient TargetsNo targets recorded. Patient Instructions Encounter Date Encounter Id Patient Instructions Last Modified By Organization Details Last Modified Time 11/28/2024 [id number] learning about screening for gestational diabetes [email or web address] Not available 11/28/2024 11:13:22 12/24/2024 [id number] learning about screening for gestational diabetes [email or web address] Not available 12/24/2024 09:55:50 Reason for Referral None Reported. Results Created Date Observation Date Name Description Value Unit Range Abnormal Flag Note LastModifiedBy Organization Detail LastModifiedTime 09/10/1909/11/2024 MATER NAL SERUM AFP interpretati on: Scree n negat fatou for open NTD. Not Available [facility] [address] [address] [place], [address], 09/11/2024 17:48:26 09/10/19 25 09/11/2024 MATER NAL SERUM AFP risk for ontd NOT CALCUL ATED Not Available [facility] [address], [address], 09/11/2024 17:48:26 09/10/19 25 09/11/2024 MATER NAL SERUM AFP AFP, serum 43.8 NG/mL Not Available [facility] [address] [place], [address], 09/11/2024 17:48:26 09/10/19 25 09/11/2024 MATER NAL SERUM AFP AFP MOM 1.18 Not Available [address] [address] [place], [address], 09/11/2024 17:48:26 09/10/1909/11/2024 MATER NAL SERUM AFP comments: You have indic ated that this is a repea t speci men. While repea ting an eleva tanja resul t is appro priat e, an accur ate neura l tube defec t risk has not been calcu lated for this repea t speci men. This patie nt's AUBREY (joann mated date of ) was used to calcu late the gesta aurelio l age. The AFP test resul t indic ates that this patie nt is scree n negat fatou for open NTD. It shoul d be noted that issac l test resul ts can never guara ntee the of a issac l baby and that 2-3% of [facility] rns have some type of physi harrison or menta l defec t, many of which are undet ectab le throu gh any known prena krystle diagn ostic techn ique. Not Available [email or web address] [address], [place], [address], 09/11/2024 17:48:26 09/10/1909/11/2024 MATER NAL SERUM AFP comment This is a scree rima test, not a diagn ostic test. This risk asses sment repor t is based in part on demog raphi c data provi ded by the order ing physi betty. Pleas e notif y the labor atory promp tly if any data are incor rect. For aruna tance with recal culat ions, pleas e call your local [facility] . For aruna tance with inter preta tion of these resul ts, pleas e conta ct your Local [facility] sam ic couns elor or call [phone] Iterasi( [phone]). Inter preti ve Cutof fs Scree n Posit fatou for Open NTD: > or = 2.50 adjus tanja MOM > or = 1.90 adjus tanja MOM for insul in-de pende nt diabe tics > or = 4.00 adjus tanja MOM for twins > or = 3.50 adjus tanja MOM for twins insul in-de pende nt diabe tics > or = 4.50 adjus tanja MOM for tripl ets For addit ional infor krystyna rae e refer to http: //russell regalado.misael stdia gnost ics.c om/fa q/FAQ 74v1 (This link is being provi ded for infor jaimla rocha/ educa aurelio l purpo ses only. ) Not Available [email or web address] [address], [place], [address], 09/11/2024 17:48:26 09/10/1909/11/2024 MATER NAL SERUM AFP calc'd gestational age 15.9 weeks Not Available [address] [place], [address], 09/11/2024 17:48:26 09/10/19 25 09/11/2024 MATER NAL SERUM AFP maternal weight 153 lbs Not Available [address] [place], [address], 09/11/2024 17:48:26 09/10/19 25 09/11/2024 MATER NAL SERUM AFP est'd date of delivery 2024 Not Available [address] [place], [address], 09/11/2024 17:48:26 09/10/19 25 09/11/2024 MATER NAL SERUM AFP aubrey determined by LMP Not Available [address], [address], 09/11/2024 17:48:26 09/10/19 25 09/11/2024 MATER NAL SERUM AFP mother's ethnic origin ALYSSA N AMERIC AN Not Available [address], [address], 09/11/2024 17:48:26 09/10/19 25 09/11/2024 MATER NAL SERUM AFP number of fetuses 1 Not Available [address] [place], [address], 09/11/2024 17:48:26 09/10/19 25 09/11/2024 MATER NAL SERUM AFP insulin depend diabetic NO Not Available [address] [address] [place], [address], 09/11/2024 17:48:26 09/10/19 25 09/11/2024 MATER NAL SERUM AFP repeat specimen YES Not Available [address], [address], 09/11/2024 17:48:26 09/10/19 25 09/11/2024 MATER NAL SERUM AFP Hx of neural tube defects NO Not Available [address] [address] [place], [address], 09/11/2024 17:48:26 09/10/19 25 09/11/2024 MATER NAL SERUM AFP prev down synd NO Not Available [address] [address] [place], [address], 09/11/2024 17:48:26 09/10/19 25 09/11/2024 MATER NAL SERUM AFP donor egg NO Not Available [address] [address] [place], [address], 09/11/2024 17:48:26 09/10/19 25 09/11/2024 MATER NAL SERUM AFP donor age: egg retrieval NOT GIVEN Not Available [address], [address], 09/11/2024 17:48:26 11/29/19 25 11/30/2024 (50G) 1HR - GLUCO SE BOOGIE ANCE TEST, GESTA AURELIO L SCREE N glucose (50g) 1 hour 106 mg/dL <135 normal Not Available [employer] [facility] [address] [place], [address], 11/30/2024 12:00:54 12/25/1912/25/2024 CBC (INCL UDES DIFF/ PLT) WBC 11.1 thous and/u L 4.0 - 9.8 high Not Available [employer] [facility] [address] [place], [address], 12/25/2024 10:48:50 12/25/19 25 12/25/2024 CBC (INCL UDES DIFF/ PLT) RBC 3.6 dianne on/uL 3.9 - 4.9 low Not Available [employer] [facility] [place], [address], 12/25/2024 10:48:50 12/25/19 25 12/25/2024 CBC (INCL UDES DIFF/ PLT) hemoglobin 10.1 g/dL 11.8 - 14.8 low Not Available [address], [address], 12/25/2024 10:48:50 12/25/19 25 12/25/2024 CBC (INCL UDES DIFF/ PLT) hematocrit 31.4 % 35.5 - 44.0 low Not Available [address], [address], 12/25/2024 10:48:50 12/25/19 25 12/25/2024 CBC (INCL UDES DIFF/ PLT) MCV 88.0 fL 82.0 - 99.0 normal Not Available [address], [address], 12/25/2024 10:48:50 12/25/19 25 12/25/2024 CBC (INCL UDES DIFF/ PLT) MCH 28.3 pg 27.2 - 32.6 normal Not Available [address], [address], 12/25/2024 10:48:50 12/25/19 25 12/25/2024 CBC (INCL UDES DIFF/ PLT) MCHC 32.2 g/dL 31.5 - 35.5 normal Not Available [address], [address], 12/25/2024 10:48:50 12/25/19 25 12/25/2024 CBC (INCL UDES DIFF/ PLT) RDW-CV 13.4 % 11.5 - 14.5 normal Not Available [employer] [address] [place] [address], [address], 12/25/2024 10:48:50 12/25/19 25 12/25/2024 CBC (INCL UDES DIFF/ PLT) platelet 216 thous and/u L 140 - 350 normal Not Available [address], [address], 12/25/2024 10:48:50 12/25/19 25 12/25/2024 CBC (INCL UDES DIFF/ PLT) MPV 11.7 fL 9.3 - 12.4 normal Not Available [address], [address], 12/25/2024 10:48:50 12/25/19 25 12/25/2024 CBC (INCL UDES DIFF/ PLT) absolute neutrophil 8.62 thous and/u L 1.90 - 7.00 high Not Available [address], [address], 12/25/2024 10:48:50 12/25/19 25 12/25/2024 CBC (INCL UDES DIFF/ PLT) absolute lymphocyte 1.55 thous and/u L 0.70 - 4.50 normal Not Available [address], [address], 12/25/2024 10:48:50 12/25/19 25 12/25/2024 CBC (INCL UDES DIFF/ PLT) absolute monocyte 0.61 thous and/u L 0.10 - 1.30 normal Not Available [address], [address], 12/25/2024 10:48:50 12/25/19 25 12/25/2024 CBC (INCL UDES DIFF/ PLT) absolute eosinophil 0.07 thous and/u L <0.70 normal Not Available [address], [address], 12/25/2024 10:48:50 12/25/19 25 12/25/2024 CBC (INCL UDES DIFF/ PLT) absolute basophil 0.07 thous and/u L <0.20 normal Not Available [address], [address], 12/25/2024 10:48:50 12/25/19 25 12/25/2024 CBC (INCL UDES DIFF/ PLT) absolute immature granulocyte 0.18 thous and/u L <0.03 high Not Available [employer] [facility] [address] [place], [address], 12/25/2024 10:48:50 12/25/19 25 12/25/2024 OB 28W (SYPH HIV 1/2 Ag/Ab Non-Re active non-re active normal Not Available [employer] [facility] [address] [place] [address], [address], 12/25/2024 11:55:50 12/25/19 25 12/25/2024 OB 28W (SYPH syphilis Ab Non-Re active non-re active normal Not Available [employer] [facility] [address] [place] [address], [address], 12/25/2024 11:55:50 10/13/19 25 10/09/2024 US, obste tric, 2nd or 3rd trime ster No observ ation record ed. [email or web address] [address], [place], [address], 10/14/2024 14:36:43 01/08/2001/07/2025 imagi ng/di agnos tic resul t No observ ation record ed. [email or web address] [address], [place], [address], 01/08/2025 13:31:37 Result Notes None recorded. Problems Name Problem SNOMED Code Status Onset Date Resolution Date Notes Provider Name and Address Organization Details Recorded Time 32761459 Active 2024 ROSEY MORENO [address] [place], [address], [facility] 10:55:59 Alpha trait thalassemia 006542600 Active 2024 ROSEY MORENO [address] [place], [address], [facility] 10:42:27 Alpha trait thalassemia 820013285 Active 2024 ROSEY MORENO [address] [place], [address], [facility] 10:42:27 Problem Notes None recorded. Procedures Surgical History Date Name Laterality Status Provider Name and Address Organization Details Recorded Time 08/12/2024 Date of Last Pap Smear completed RETA SIDHU [facility] [address] [place], [address], [facility] 08/12/2024 11:21:41 Imaging Results None recorded. Procedure Notes None recorded. Medical Equipment None Reported. Allergies Allergen ID Allergen Name Allergen Category Reaction Reaction Severity Criticality Documentation Date Start Date Code Code System Note Provider Name and Address Organization Details Recorded Time 47610808 Product containin g penicilli n (product) medicatio n Not available Not available Not available 07/29/2024 06413 8001 SNOMED Berta karimise [facility] 11:13:58 761920 amoxicill in medicatio n Not available Not available Not available 07/29/2024 723 RxNorm Berta Aguirre octaviano [facility] 11:13:58 Medications Name Sig Start Date Stop Date Status Note LastModified by Organization Details LastModified Time Vitamin B-6 25 mg tablet TAKE 1 TABLET BY MOUTH THREE TIMES DAILY FOR 30 DAYS 09/09 completed Not Available Not Available Not Available aspirin 81 mg tablet,del ayed release TAKE 1 TABLET BY MOUTH EVERY DAY active Not Available Not Available No t Available Unisom (doxylamin e) 25 mg tablet Take 1/2 or 1 tablet at bedtime 025 09/09 completed Not Available Not Available Not Available Vitamin active Not Available Not Available Not Available Vitals Date Recorded Body height Provider Name an d Address Organization Details Last Updated DateTime 10/09/2024 167.64 cm Grace Sanchez [facility] 10/09/2024 11:44:32 Date Recorded Body mass index (BMI) Body weight Systolic And Diastolic Provider Name and Address Organization Details Last Updated DateTime 10/09/2024 24.9 kg/m2 58619.22 g 112/72 mm[Hg] Olga Daley [facility] 10/09/2024 12:03:21 Date Recorded Body height Body mass index (BMI) Body weight Systolic And Diastolic Provider Name and Address Organization Details Last Updated DateTime 10/31/2024 167.64 cm 27.4 kg/m2 26332.7 g 120/80 mm[Hg] Elsy Edward [facility] [employer] [facility] 10/31/2024 11:36:46 Date Recorded Body height Body mass index (BMI) Body weight Systolic And Diastolic Provider Name and Address Organization Details Last Updated DateTime 11/28/2024 167.64 cm 27.8 kg/m2 33674.89 g 112/80 mm[Hg] Olga Daley [facility] 11/28/2024 10:45:35 Date Recorded Body height Body mass index (BMI) Body weight Systolic And Diastolic Provider Name and Address Organization Details Last Updated DateTime 12/24/2024 167.64 cm 29.2 kg/m2 24231.22 g 122/76 mm[Hg] Olga Daley [facility] [employer] [facility] 12/24/2024 09:50:26 Date Recorded Body height Body mass index (BMI) Body weight Body temperature Systolic And Diastolic Provider Name and Address Organization Details Last Updated DateTime 01/07/2025 167.64 cm 33.9 kg/m2 98524.6 8 g 98 [degF] 124/78 mm[Hg] Grace Sanchez [facility] [employer] [facility] 10:51:05 Social History Question Answer Notes LastModified by Organizat ion Details LastModified Time If You Are , What Was Your Level Of Alcohol Consumption Prior To ? None Information not available 07/29/2024 How Many Years Have You Consumed Alcohol? 6 Information not available 07/29/2024 Are You Blind Or Do You Have Difficulty Seeing? No Information not available 07/29/2024 Are You Deaf Or Do You Have Serious Difficulty Hearing? No Information not available 07/29/2024 What Type Of Diet Are You Following? REGULAR Information n ot available 07/29/2024 How Many Children Do You Have? 0 Information not available 07/29/2024 Are There Any Occupational Health Risks Where You Work? No Information not available 07/29/2024 What Is Your Relationship Status? Single Information not available 07/29/2024 Are You Sexually Active? Yes Information not available 07/29/2024 Sex: Unknown Functional Status Question Answer Note LastModified by Organizat ion Details LastModified Time Do you use any illicit or recreational drugs? No Information not available 07/29/2024 What is your level of alcohol consumption? Occasional Information not available 07/29/2024 Are you currently employed? Yes Information not available 07/29/2024 What is your exercise level? Occasional Information not available 07/29/2024 Mental Status None recorded. Family History Relationship Description Onset Age of this Age Resolved Age Notes LastModified by Organization Details LastModified Time Maternal Grandmother Diabetes mellitus [email or web address] Not available 07/29/2024 11:14:05 Maternal Aunt Malignant tumor of breast [email or web address] Not available 08/12 10:58:20 Unspecified Relation Malignant tumor of breast Not available 08/12 10:58:20 Medical History Condition Response Other Cancer N High Blood Pressure N Colon Cancer N Cytomegalovirus N Hyperthyroidism N MRSA N Blood Transfusion N Herpes (HSV) N Breast Cancer N Lung Cancer N Depression N Hypothyroidism N Incontinence N Panic Attacks N Neurological Disorder N Deep Vein Thrombosis N Anxiety Disorder N Autoimmune disease N Arthritis N Shingles N Tuberculosis/Positive PPD N Infertility N Polycystic Ovarian Syndrome N Cervical Cancer N Hematuria N Chlamydia N Varicosities N Stroke N Seasonal allergies N Crohn's Disease N Alzheimer's/Dementia N COPD/Emphysema N Endometriosis N HPV/Genital Warts N IBS (Irritable Bowel Syndrome) N History of Abnormal Pap N High Cholesterol N Liver Disease N Fibromyalgia N Kidney Infection N Ulcer N Kidney Disease N HIV N Gallbladder disease N Sickle Cell Disease/Trait N Von Willebrand disease N ADD/ADHD N Eating Disorder N Anemia N Diabetes Mellitus (non-insulin dependent ) N Ovarian Problems N Multiple Sclerosis N Gonorrhea N Frequent Urinary Tract infections N Osteopenia N Headaches/migraines N GERD (reflux) N Ovarian Cancer N Diabetes (insulin dependent) N Seizures/Epilepsy N Breast Problems N Fibroids N Heart Attack N Asthma N Lupus N Endometrial Cancer N Rubella N Blood Clotting Disorder N Bipolar Disorder N Diabetes Mellitus (during ) N Ulcerative Colitis N Hepatitis N Heart Disease N Pulmonary Embolism N RPR N Chicken Pox N Osteoporosis N Gynecological History Statement/Question Response Flow Moderate Date of last HPV 08/12/2024 Date of LMP 05/21/2024 Duration of Flow (days) 4 Most Recent Mammogram Current Control Method Age at Menarche 15 Date of Last Colonoscopy Most Recent Bone Density Frequency of Cycle (Q days) 28 Date of Last Pap Smear 08/12/2024 Obstetrics History GPAL:G 2 P 0 0 1 0 Type Value Induced 1 Total 2 Past Encounters Encounter ID Performer Location Encounter Start Date Encounter Closed Date Diagnosis/Indication Diagnosis SNOMED-CT Code Diagnosis ICD10 Code Diagnosis Note [id number] JUVENAL RODRIGUEZ [address] [address] 07/29/2024 10:42:40 07/29/2024 16:02:00 Missed period 88926934 N92.6 Pt presents today for a confirmati on of visit. has not been previously confirmed at another healthcare facility. Pt voiced that she is happy about this . TVUS today showed:IUP with Cardiac Activity. AUBREY consistent with LMP. AUBREY: 02/25/2025G estational Age: 9w 6dFHT: 163 First trimester teaching provided.- --Foods and activities to avoid---Sa fe meds---Sy entation to practice-- -Delivery locations- --BRYSON visit progressio n---Prenat al vitamins daily--- Toxoplasmo sis precaution s reviewed-- -S/S of SAB reviewed and when to seek care RTC 2-3 weeks for 1st OB, Labs, and Physical. Will need pap smear at 1st OB visit. --BMI: 23.9 [id number] CARL MORENO-CORNELL [facility] [address] [place] [address] 08/12/2024 10:52:16 08/12/2024 12:21:18 Gestation period, 11 weeks 15045929 Z3A.11 -- Guide: Previously given and reviewed. Toxoplasmo sis precaution s reviewed. Reviewed office visit schedule during . Reviewed Quickening and normal FHTs. screening 2437 [address] Z36.89 Screening for malignant neoplasm of cervix 815277998 Z12.4 Nausea 745388043 R11.0 Para 1 95471750 Z34.01 care status 24 5602665 Z34.91 [id number] RETA SIDHU [facility] [address] [place] [address] 09/09/2024 11:00:32 09/09/2024 12:05:30 Gestation period, 15 weeks 6773096 Z3A.15 Screening for disorder 232426100 Z36.0 care status 24 9731871 Z34.92 Pt is here for a BRYSON appointmen t. She is taking vitamins. She has no complaints or questions. Has not felt movement yet. Denies vaginal bleeding, abdominal cramps, N/V, contractio ns, or LOF. Denies headache, vision changes, swelling of hands or face, and epigastric pain. Discussed PTL and precaution s given. There are no identifiab le risk factors for pre-term labor. Reminded pt that I do not delivery babies. Will plan for pt to start meeting delivery providers after 28 week visit. [id number] RETA SIDHU [address] [address] 10/09/2024 11:06:08 10/09/2024 12:16:21 Gestation period, 20 weeks 27424747 Z3A.20 screening for malformation 713330899 Z36.3 Normal 8221442 2 Z34.92 Pt is here for a BRYSON appointalea t. She is taking vitamins. She has no complaints or questions. Has felt movement yet. Denies vaginal bleeding, abdominal cramps, N/V, contractio ns, or LOF. Denies headache, vision changes, swelling of hands or face, and epigastric pain. Discussed PTL and precaution s given. There are no identifiab le risk factors for pre-term labor. Reminded pt that I do not delivery babies. Will plan for pt to start meeting delivery providers after 28 week visit. [id number] RETA SIDHU [address] [address] 10/31/2024 11:03:47 10/31/2024 12:25:01 Gestation period, 23 weeks 04072044 Z3A.23 Normal 1962812 2 Z34.92 Pt is here for a BRYSON appointalea t. She is taking vitamins. She has no complaints or questions. Has felt movement yet. Denies vaginal bleeding, abdominal cramps, N/V, contractio ns, or LOF. Denies headache, vision changes, swelling of hands or face, and epigastric pain. Discussed PTL and precaution s given. There are no identifiab le risk factors for pre-term labor. Reminded pt that I do not delivery babies. Will plan for pt to start meeting delivery providers after 28 week visit. [id number] RETA SIDHU [facility] [address] [place] [address] 11/28/2024 10:30:04 11/28/2024 11:32:33 Normal 01912635 Z34.82 Pt is here for a BRYSON appointmen t. She is taking vitamins. She has no complaints or questions. Denies vaginal bleeding, abdominal cramps, N/V, contractio ns, and LOF. Denies headache, vision changes, swelling of hands or face, and epigastric pain. Reports feeling movement. Discussed Movement Counts. 28 Week Visit:TDAP Education and Order given.RhoG am: Not neededDisc ussed pediatrici an selection and pre registerin g with hospital.P P Contracept ion: Options discussed, would like to do pill. She does plan on breastfeed ing. Discussed POP. Discussed PTL and precaution s given. There are no identifiab le risk factors for pre-term labor. Reminded pt that I do not delivery babies. Recommende d pt see a Delivery provider next visit so she has the chance to meet everyone. screening 3757 35320 Z36.89 Needs 3rd Trimester labs next visit. Gestation period, 27 weeks 04297135 Z3A.27 Depression screening 171 795335 Z13.31 [id number] BARRY HUNTER DO [facility] [address] [place] [address] 12/24/2024 09:38:07 12/24/2024 10:05:31 Gestation period, 30 weeks 29203342 Z3A.30 Normal 4583554 2 Z34.83 screening 2437 23407 Z36.89 [id number] CARL MORENO- [facility] [address] [place] [address] 01/07/2025 10:04:12 01/07/2025 11:38:33 Gestation period, 33 weeks 08790548 Z3A.33 Normal 6558564 2 Z34.93 Pt is here for a BRYSON appointmen t. She is taking vitamins. She has no complaints or questions. Denies vaginal bleeding, abdominal cramps, N/V, contractio ns, and LOF. Denies headache, vision changes, swelling of hands or face, and epigastric pain. Reports feeling movement. Discussed Movement Counts. Discussed PTL and precaution s given. There are no identifiab le risk factors for pre-term labor. Reminded pt that I do not delivery babies. Recommende d pt see a Delivery provider next visit so she has the chance to meet everyone. Health Concerns Section Related Observation LastModified by Organization Detai ls LastModified Time None Recorded Concern Status LastModified by Organization Details LastModified Time None Recorded Advance Directives Directive None Recorded Payers Insurance Date Sequence Insurance Name Policy Number Policy Cabrera Covered Member ID Cabrera Member ID Guarantor Name 07/29/2024 1 [facility] (MEDICAID REPLACEMENT - HMO) Chiquita Zacarias [id number] Chiquita Zacarias 07/29/2024 1 [facility] (MEDICAID REPLACEMENT - HMO) Chiquita Zacarias [id number] Chiquita Zacarias 07/29/2024 2 [facility] (MEDICAID REPLACEMENT - HMO) Chiquita Zacarias [id number] Chiquita Zacarias 01/04/2025 1 [facility] (MEDICAID REPLACEMENT - HMO) [id number] Chiquita Zacarias [id number] Chiquita Zacarias Notes Date Note Type Note Provider Name and Address Organization Details Recorded Time 10/09/2024 text/html Chiquita is here today for a routine OB visit. She is currently at 20.1 weeks gestation. vitamins: yes She has felt movement.She denies any complaints of the presence of vaginal bleed, leaking fluid, abdominal cramps, nausea, vomiting, headache or visual disturbances. Pt says she has been having dizzy spells and has had a couple nosebleeds. [place]A [place]HU [place] [address] [place], [address], [facility] 10/09/2024 12:11:44 10/31/2024 text/html Patient is here today for a routine OB visit. She is currently at 23.2 weeks gestation. vitamins: yes She has felt movement. She denies any complaints of the presence of vaginal bleed, leaking fluid, abdominal cramps, nausea, vomiting, headache or visual disturbances. RETA RIVERAMary[address], [address], [facility] [facility] 10/31/2024 11:54:22 11/28/2024 text/html Patient is here today for a routine OB visit. She is currently at 27.2 weeks gestation. vitamins: yes She has felt movement.She denies any complaints of the presence of vaginal bleed, leaking fluid, abdominal cramps, nausea, vomiting, headache or visual disturbances. Pt has no concerns. RETA SIDHU [address], [address], [facility] 11/28/2024 11:15:24 12/24/2024 text/html Patient is here today for a routine OB visit. She is currently at 31 weeks gestation. vitamins: yes She has felt movement. She denies any complaints of the presence of vaginal bleed, leaking fluid, abdominal cramps, nausea, vomiting, headache or visual disturbances. Pt has no concerns. BARRY HUNTER DO [address] [place] [address], [id number], [facility] 12/24/2024 10:02:31 01/07/2025 text/html Patient is here today for a routine OB visit. She is currently at 32.6 weeks gestation. vitamins: yes She has felt movement.She denies any complaints of the presence of vaginal bleed, leaking fluid, abdominal cramps, nausea, vomiting, headache or visual disturbances. Pt c/o numbness and tingling in both of her hands for a few weeks now. She wants to know what could be causing it. 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 Status 08/12/19 25 1 O Positive OPEN Fetus Data First Name Last Name Admitted to NICU Weight (g) Sex Living Outcome Pediatric Complications Fetus ID Race Codes Race Delivery Type [id number] Problems Problem Notes Problem Name Start Date End Date Resolution Snomed Code Not e Alpha trait thalassemia 09/03/2024 [id number] Aubrey Calculation Initial Aubrey Date Initial Exam Date Initial Exam Provider Initial Ultrasound Date Last Menstrual Period Date Ultra Sound Weeks Gestation 08/12/2024 0 Eighteen To Twenty Week Aubrey Update Ultra Sound Date Fundal Height At Umbil Quickening Date Ultra Sound Latest Weeks Gestation Final Aubrey Confirmed By Final Aubrey Confirmed Date Final Aubrey Date Ultra Sound Latest Days Gestation 0 [email or web address] 08/12/2024 02/26/20 25 0 Pre- Flowsheet Flowsheet Date 08/12/2024 Rush Score Blood Edema Fundus Height Fundus Units Glucose Ketones Leukocytes Nitrite Labor Signs Protein Cervic Dilation Cervic Effacement Cervic Station none Type Weight in lbs Pre/Post Dialysis Refused Weight 153.688989480747 BP Diastolic BP Location Tested BP Systolic BP Type 76 112 Fetus Heart Rate Present A 162 Present Fetus Movement Comments NOB labs, Genetic testing, a nd PAP done today. Low dose aspirin recommended. Pre- BMI: 23.9. Flowsheet Date 09/09/2024 Rush Score Blood Edema Fundus Height Fundus Units Glucose Ketones Leukocytes Nitrite Labor Signs Protein Cervic Dilation Cervic Effacement Cervic Station none none neg Type Weight in lbs Pre/Post Dialysis Refused Weight 153.121754047834 BP Diastolic BP Location Tested BP Systolic BP Type 72 124 Fetus Heart Rate Present A 152 Present Fetus Movement A No Comments No OB complaints. Maternal S kayce AFP today. Flowsheet Date 10/09/2024 Rush Score Blood Edema Fundus Height Fundus Units Glucose Ketones Leukocytes Nitrite Labor Signs Protein Cervic Dilation Cervic Effacement Cervic Station none none neg Type Weight in lbs Pre/Post Dialysis Refused Weight 154.35215961121 BP Diastolic BP Location Tested BP Systolic BP Type 72 112 Fetus Heart Rate Present A 132 Present Fetus Movement A Yes Comments Maternal Serum AFP negative. Anatomy US today complete. Cervical length WNL. EFW 50.8%tile. AFV WNL. Flowsheet Date 10/31/2024 Rush Score Blood Edema Fundus Height Fundus Units Glucose Ketones Leukocytes Nitrite Labor Signs Protein Cervic Dilation Cervic Effacement Cervic Station none none neg Type Weight in lbs Pre/Post Dialysis Refused With clothes 170.288706048910 BP Diastolic BP Location Tested BP Systolic BP Type 80 120 sitting Fetus Heart Rate Present A 141 Present Fetus Movement A Yes Comments No OB complaints. Discussed 1 hour next visit. Flowsheet Date 11/28/2024 Rush Score Blood Edema Fundus Height Fundus Units Glucose Ketones Leukocytes Nitrite Labor Signs Protein Cervic Dilation Cervic Effacement Cervic Station 27 cm none none neg Type Weight in lbs Pre/Post Dialysis Refused Weight 172.082958045863 BP Diastolic BP Location Tested BP Systolic BP Type 80 112 Fetus Heart Rate Present A 125 Present Fetus Movement A Yes Comments No OB complaints. 1 hour gct collected today. TDAP Education and order given. Discussed link trainer maintenance worker selection. Education for PP contraception given, would like POP. EPDS 0. Needs 3rd Trimester labs next visit. Flowsheet Date 12/24/2024 Rush Score Blood Edema Fundus Height Fundus Units Glucose Ketones Leukocytes Nitrite Labor Signs Protein Cervic Dilation Cervic Effacement Cervic Station 30 cm none neg Type Weight in lbs Pre/Post Dialysis Refused Weight 181.755179034279 BP Diastolic BP Location Tested BP Systolic BP Type 76 122 Fetus Heart Rate Present A 140 Fetus Movement A Yes Comments No ob complaints. remaing 3T labs todayRTO in 2 week Flowsheet Date 01/07/2025 Rush Score Blood Edema Fundus Height Fundus Units Glucose Ketones Leukocytes Nitrite Labor Signs Protein Cervic Dilation Cervic Effacement Cervic Station 33 cm none Type Weight in lbs Pre/Post Dialysis Refused Weight 209.737864268461 BP Diastolic BP Location Tested BP Systolic BP Type 78 124 Fetus Heart Rate Present A 148 Present Fetus Movement A Yes Comments 4D today. NATI WNL. Good musa thing, movement, and tone. Menstrual History Last Menstrual Date Menses Monthly On Bcp Conception Prior Menses Frequency Hcg Plus Date Menarche Onset Age Genetic Screening And Infection History Question Response Note Patient's Age Will Be 35 Years Or Older At Estim ated Date of Delivery false Personal or Family History o f Neural Tube Defect (Meningomyelocele, Spina Bifida, Or Anencephaly) false Personal or Family History of Congenital Heart D efect false Maternal Metabolic Disorder (eg, Type 1 Diabetes , PKU) false Recurrent Loss, Or A Stillbirth false Patient Or Partner Has History Of Genital Herpes false Prior GBS-infected child false History of HIV false History of Hepatitis false Genetic Carrier Screen positive false Delivery Information Delivery Date Delivery Type Labor Anesthesia Weeks Gestation Incision Type Labor Labor Length Hrs Delivered By Post Complications Tubal Sterilization Discharge Date Comments Discharge Information Feeding Method Contraceptive Method Maternal HG B and HCT Levels Ob Episode Information Episode Created Date Number of Fetuses Patient Bloodtype Patient rh Status Prepregnancy Weight lbs Domestic Partner Domestic Partner Phone Father Name Flavoring Machine Operator Status 07/29/19 25 1 CLOSED Fetus Data First Name Last Name Admitted to NICU Weight (g) Sex Living Outcome Pediatric Complications Fetus ID Race Codes Race Delivery Type , Induced [id number] Aubrey Calculation Initial Aubrey Date Initial Exam Date Initial Exam Provider Initial Ultrasound Date Last Menstrual Period Date Ultra Sound Weeks Gestation 0 Eighteen To Twenty Week Aubrey Update Ultra Sound Date Fundal Height At Umbil Quickening Date Ultra Sound Latest Weeks Gestation Final Aubrey Confirmed By Final Aubrey Confirmed Date Final Aubrey Date Ultra Sound Latest Days Gestation 0 0 Menstrual History Last Menstrual Date Menses Monthly On Bcp Conception Prior Menses Frequency Hcg Plus Date Menarche Onset Age Delivery Information Delivery Date Delivery Type Labor Anesthesia Weeks Gestation Incision Type Labor Labor Length Hrs Delivered By Post Complications Tubal Sterilization Discharge Date Comments 3 8 Discharge Information Feeding Method Contraceptive Method Maternal HG B and HCT Levels
--- OUTSIDE RECORDS SUMMARY | 2025-01-14 10:07 | XMS_ITS | Clinical Summary ---
Author Organization [facility] at the [facility] Office Center Address [address] [place] [address] Care Team Providers Care Caregiver Assisted Living Name Role Phone Adalberto Land DO Primary Care Provider + Allergies Active Allergy Reactions Criticality Noted Date Comments Amoxicillin Hives Medium 11/24/2020 Penicillins Hives Medium 11/24/2020 Medications Estarylla 0.25-35 mg-mcg per tablet Take 1 tablet by mouth daily 10/19/2020 Active Active Problems Problem Noted Date Diagnosed Date Post viral syndrome 12/01/2020 Iron deficiency anemia due to chronic blood loss 12/01/2020 Surgical History Surgery Date Site/Laterality Comments NO PAST SURGERIES Family History Medical History Relation Name Comments No Known Problems Father No Known Problems Mother No Known Problems Sister 1 No Known Problems Sister 2 Relation Name Status Comments Father Mother Alive Sister 1 Sister 2 Social History Tobacco Use Types Packs/Day Years Used Date Smoking Tobacco: Never Smokeless Tobacco: Never Personal Safety Answer Date Recorded Getting School Help Needed Not on file 08/26 Comments Unknown Sex and Gender Information Value Date Recorded Sex Assigned at Not on file 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
--- NOTE | 2025-01-14 10:13 | PC.NURSE ---
[facility] in OB contacted per EDP request. [facility] stated they will be over to monitor baby.
[2025-01-14 10:30] LABS: Hematocrit 28.1 % (37.0-47.0); Hemoglobin 8.9 g/dL (12.0-15.0); Immature Granulocyte Percent A 1.3 % (0-0.5); Lymphocytes Absolute Auto 1.40 K/mm3 (0.9-3.2); Mean Corpuscular HGB Conc 31.7 g/dl (32-36); Mean Corpuscular Hemoglobin 26.6 pg (26-34); Mean Corpuscular Volume 84.1 fl (80-100); Nucleated Red Blood Cells Absolute Auto 0.000 K/mm3 (0.0-0.012); Nucleated Red Blood Cells Perc 0.0 % (0.0-0.2); Platelet Count Result 172 k/mm3 (150-375); Red Blood Count 3.34 M/mm3 (4.2-5.4); White Blood Count 8.3 K/mm3 (4.5-10.0)
[2025-01-14 10:42] LABS: INR 1.0; Prothrombin Time 13.5 Seconds (11.1-14.7)
[2025-01-14 10:43] LABS: Partial Thromboplastin Time 24.9 Seconds (22.3-36.8)
--- NOTE | 2025-01-14 10:45 | PC.NURSE ---
OB AT BEDSIDE FOR NST. FHT AUDIBLE
[2025-01-14] MEDS: SODIUM CHLORIDE 0.9% IV 1,000 ML 999 ML IV CONT (10:58)
[2025-01-14] MEDS: MECLIZINE HCL 25 MG TABLET PO (10:59)
[2025-01-14 11:05] LABS: Alanine Aminotransferase 29 U/L (6-35); Albumin Level 3.2 g/dL (3.5-5.1); Alkaline Phosphatase 108 U/L (38-126); Anion Gap 6 mmol/L (4-12); Aspartate Amino Transferase 39 U/L (14-36); Bilirubin,Total 0.4 mg/dL (0.2-1.3); Blood Urea Nitrogen 9 mg/dL (7-17); Calcium 8.7 mg/dL (8.4-10.2); Carbon Dioxide 20 mmol/L (22-30); Chloride 106 mmol/L (98-107); Estimated Glomerular Filt Rate > 60; Glucose 155 mg/dL (65-110); Magnesium 1.7 mg/dL (1.6-2.3); Potassium 3.9 mmol/L (3.4-5.0); Sodium 132 mmol/L (137-145); Total Protein 6.3 g/dL (6.3-8.2)
[2025-01-14 11:05] LABS: Add Urine Microscopic? YES; Appearance Urine Cloudy (Clear); Glucose Urine UA Negative (Negative); Leukocyte Esterase Ur Trace LEU/UL (Negative); Need Manual Microscopic Reviewed; Nitrate Urine Negative (Negative); Non Pathogenic Casts >20; Specific Grav Ur 1.030 (1.001-1.035)
[2025-01-14 11:07] LABS: Influenza A QL RT-PCR Negative (Negative); Influenza B QL RT-PCR Negative (Negative); RSV RNA, RT-PCR Negative (Negative); SARS-CoV-2 RNA PCR Negative (Negative)
[2025-01-14 11:12] LABS: Troponin I < 0.012 ng/mL (0.000-0.034)
--- OUTSIDE RECORDS SUMMARY | 2025-01-14 11:21 | XMS_ITS | Clinical Summary ---
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
--- OUTSIDE RECORDS SUMMARY | 2025-01-14 11:21 | XMS_ITS | Referral Summary ---
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
== END 2025-01-14 12:35 | disposition home or self-care (01) ==
PROVIDERS: Emergency Provider Physician Assistant
DX: O99.891 Other specified diseases and conditions complicating pregnancy (principal); R42 Dizziness and giddiness; R82.71 Bacteriuria; R80.9 Proteinuria, unspecified; Z20.822 Contact with and (suspected) exposure to COVID-19; Z3A.34 34 weeks gestation of pregnancy
CPT/HCPCS: 36415; 80053; 81001; 83735; 84484; 85025; 85380; 85610; 85730; 87086; 87637; 93005; 96360; 99284; A9270; J7030